=== PATIENT | male | born 1965 | race Two or more races ===

== ENCOUNTER → 2017-02-11 | Outpatient (CLI) | payer OTHER ==
--- NOTE | 2017-02-11 17:52 | REP ---
Clinical: Sprain. Technique: AP, lateral, bilateral oblique views of the right elbow. Findings: Age-related degenerative changes noted. Lateral view demonstrates a fractured osteophyte at the olecranon process which is likely chronic as no significant overlying soft tissue swelling is appreciated. However, correlation is recommended. No further acute fracture dislocation identified. No effusion. Impression: Age-related degenerative changes. Fractured osteophyte at the olecranon process likely chronic and should be correlated with physical examination. Signed by Yariel Bowles MD 02/11/2017 05:44 P
== END ==
LOC: M LRY 17:28
PROVIDERS: ATTEND Physician Assistant Medical
DX: S53.401A Unspecified sprain of right elbow, initial encounter (principal); X58.XXXA Exposure to other specified factors, initial encounter; Y92.89 Other specified places as the place of occurrence of the external cause; Y99.9 Unspecified external cause status; Y93.9 Activity, unspecified
CPT/HCPCS: 73080; G0463